=== PATIENT | female | born 1985 | race Caucasian/White ===

== ENCOUNTER 2020-05-16 17:12 | Emergency (ER) | payer MEDICAID ==
[~2020-05-16] VITALS: Ht 154.9 cm; Wt 91.0 kg
[2020-05-16] MEDS ORDERED: PROPOFOL 10 MG/ML, 20ML ONE (17:22)
[2020-05-16] MEDS ORDERED: HYDROmorphone 1 MG/ML, 1ML INJ ONE (17:22)
[2020-05-16] MEDS ORDERED: MIDAZOLAM 1 MG/ML, 2ML ONE (17:28)
[2020-05-16] MEDS ORDERED: ONDANSETRON 2MG/ML, 2ML IVPush ONE (17:30)
[2020-05-16] MEDS ORDERED: SODIUM CHLORIDE FLUSH 10ML SYR IVF ONE (17:30)
[2020-05-16] MEDS ORDERED: MIDAZOLAM 1 MG/ML, 2ML IVPush ONE (17:30)
[2020-05-16] MEDS ORDERED: HYDROmorphone 1 MG/ML, 1ML INJ IVPush PRN (17:30)
[2020-05-16] MEDS ORDERED: PLEASE ENTER HEIGHT AND WEIGHT MC SCH (17:30)
[2020-05-16] MEDS ORDERED: PROPOFOL 10 MG/ML, 20ML IVPush ONE (17:30)
--- NOTE | 2020-05-16 17:38 | NUR ---
UNABLE TO OBTAIN BP DUE TO PTS ANXIETY, RESTLESSNESS. VERIFIED W/ OK TO GIVE VERSED AND DILAUDID DUE TO PTS PAIN STATUS.
--- NOTE | 2020-05-16 18:03 | NUR ---
LATE ENTRY: 1755: PROCEDURE BEGIN. 80 MG PROPOFOL VSS 1800: 40 MG PROPOFOL, VSS 1805: VSS 1808: PT MORE ALERT
--- NOTE | 2020-05-16 18:21 | NUR ---
PT DROWSY BUT ALERT, STATES SHES STILL IN PAIN AND HAS ANXIETY. VSS, NADN.
--- NOTE | 2020-05-16 18:26 | NUR ---
PT STILL HAS C/O PAIN W/ BREATHING. VSS, NADN. WILL UPDATE ERP.
[2020-05-16] MEDS ORDERED: HYDROcodone/APAP 5/325 TABLET ONE (18:32)
[2020-05-16] MEDS ORDERED: ONDANSETRON 2MG/ML, 2ML ONE (18:33)
--- NOTE | 2020-05-16 18:39 | NUR ---
PT STATES SHE IS HAVING BAD ANXIETY, RR26, OTHER VS WDL. NOTIFIED NO NEW ORDERS RECEIVED.
--- NOTE | 2020-05-16 18:51 | NUR ---
LATE ENTRY: THIS IS A 35 YO F BIB EMS FROM HOME FOR RT SHOULDER INJ. RECEIVED 27MG KETAMINE AND 4MG ZOFRAN BROOM MAN. PT IN SEVERE EMOTIONAL DISTRESS UPON ARRIVAL R/T PAIN, UNCONSOLABLE. PT MEDICATED PER EMAR, NO RELIEF W/ 1MG DILAUDID RELIEF AFTER 2MG VERSED. PROCEDURALLY SEDATED W/ 120MG PROPOFOL AND REDUCED SUCCESSFULLY. POST PROCEDURE PT HAS C/O ANXIETY, AND PAIN W/ INSPIRATION. ERP NOTIFIED PT MEDICATED W/ 5 NORCO. AMBREEN LAGUNAS.
--- NOTE | 2020-05-16 18:56 | NUR ---
REPORT GIVEN TO ELISSA VIVAS. PT AWAKE AND ALERT, SILL HAS C/O PAIN AND ANXIETY. AMBREEN LAGUNAS.
[2020-05-16] MEDS ORDERED: LORazepam 1MG TABLET PO ONE (19:00)
[2020-05-16] MEDS ORDERED: HYDROcodone/APAP 5/325 TABLET PO ONE (19:00)
[2020-05-16] MEDS ORDERED: LORazepam 1MG TABLET ONE (19:09)
[2020-05-16 19:40] VITALS: BP 120/76
== END 2020-05-16 19:59 | disposition home or self-care (01) ==
LOC: ED 18:46
DX: S43.004A Unspecified dislocation of right shoulder joint, initial encounter (principal); F17.210 Nicotine dependence, cigarettes, uncomplicated; X58.XXXA Exposure to other specified factors, initial encounter; Y93.89 Activity, other specified; Y92.098 Other place in other non-institutional residence as the place of occurrence of the external cause; Y99.8 Other external cause status
CPT/HCPCS: 23650; 73020; 73030; 96374; 96375; 99285; 99406; J1170; J2250; J2405

== ENCOUNTER 2020-07-22 12:04 | Emergency (ER) | payer MEDICAID ==
[~2020-07-22] VITALS: Ht 152.4 cm; Wt 89.5 kg
[2020-07-22 12:21] VITALS: BP 105/69
[2020-07-22] MEDS ORDERED: DIPH,PERTUSS(ACELL),TET VAC/PF 0.5 ML IM-VACC ONE (12:30)
--- NOTE | 2020-07-22 13:17 | NUR ---
SUPERVISOR AIRPLANE FLIGHT ATTENDANT: PT AMBULATORY TO ROOM FROM LOBBY
--- NOTE | 2020-07-22 13:23 | NUR ---
pt is a 35f complaining of "boils on my head." She has been using hot compresses but they are not helping. She says there are 4 of them and they are caused by the bone spur in her foot which she believes is causing he infection. monitors placed, call light within reach. no further needs at this time.
== END 2020-07-22 14:42 | disposition home or self-care (01) ==
LOC: ED 14:15
DX: L03.811 Cellulitis of head [any part, except face] (principal); L03.313 Cellulitis of chest wall; L03.211 Cellulitis of face; L03.312 Cellulitis of back [any part except buttock and flank]; Z22.322 Carrier or suspected carrier of Methicillin resistant Staphylococcus aureus
CPT/HCPCS: 99283

== ENCOUNTER 2020-08-19 12:05 | Emergency (ER) | payer MEDICAID ==
[~2020-08-19] VITALS: Ht 162.6 cm; Wt 86.8 kg
--- NOTE | 2020-08-19 12:45 | NUR ---
PSYCH CONSULT PER ORTEGA WRIGHT COMPLETED.
--- NOTE | 2020-08-19 12:48 | NUR ---
PT HAVING LOUD CONVERSATION ON HER CELL PHONE.
--- NOTE | 2020-08-19 13:10 | NUR ---
DR CHRISTIANSON AT BS
--- NOTE | 2020-08-19 13:18 | NUR ---
PT SPEAKING RAPIDLY IN COMPLETE SENTENCES. C/O PAIN TO HEAD, FACE, BACK, STOMACH, FEET. NO MEDS TAKEN TODAY. DENIES UTI SX.
--- NOTE | 2020-08-19 13:21 | NUR ---
STATES "I HAVE FLUID COMING OUT OF MY HEAD" WHEN ASKED WHERE, PT REPLIED "EVERYWHERE". NO HEAD DISCHARGE NOTED. C/O FLAMING SENSATION TO BACK.
[2020-08-19] MEDS ORDERED: LORazepam 1MG TABLET ONE (13:26)
[2020-08-19] MEDS ORDERED: LORazepam 1MG TABLET PO ONE (13:30)
[2020-08-19 13:35] VITALS: BP 127/67
--- NOTE | 2020-08-19 13:38 | NUR ---
ATIVAN GIVEN PER EMAR. SIDE RAIL UP X1, CALL LIGHT W/IN REACH. LAB AT
[2020-08-19 13:46] LABS: BASOPHILS % (AUTO) 1 % (0-1); EOSINOPHILS % (AUTO) 2 % (1-7); LYMPHOCYTES % (AUTO) 45 % (22-44); MEAN CORPUSCULAR HEMOGLOBIN 30.5 pg (27.0-34.8); MEAN CORPUSCULAR HGB CONC 34.2 g/dL (32.4-35.8); MEAN PLATELET VOLUME 7.7 fL (7.4-10.4); MONOCYTES % (AUTO) 5 % (2-9); NEUTROPHILS % (AUTO) 48 % (42-75); PLATELET COUNT 278 x10^3/uL (130-400); RED BLOOD COUNT 4.04 x10^6/uL (3.82-5.3)
[2020-08-19 13:50] LABS: MD NO
[2020-08-19 13:58] LABS: ALBUMIN 3.7 g/dL (3.4-5.0); ANION GAP 5 mmol/L (5-15); CALCIUM 8.5 mg/dL (8.5-10.1); CHLORIDE 111 mmol/L (98-107)
[2020-08-19 14:04] LABS: ALANINE AMINOTRANSFERASE 28 U/L (12-78); ALKALINE PHOSPHATASE 93 U/L (45-117); BILIRUBIN,TOTAL 0.3 mg/dL (0.2-1.0); CREATININE 0.83 mg/dL (0.55-1.02); TOTAL PROTEIN 7.1 g/dL (6.4-8.2)
--- NOTE | 2020-08-19 14:21 | NUR ---
PT SITTING QUIETLY ON BED USING CELL PHONE. C/O CONTINUING PAIN, CONTINUING FLUID OOZING FROM HEAD. SPEECH RAPID. REMINDED PT OF NEED FOR URINE SPECIMEN. PT STATES NO URGE TO VOID, "I ONLY PEE ONCE A DAY AND I ALREADY WENT"
--- NOTE | 2020-08-19 14:24 | NUR ---
DISCUSSED VOIDED SPECIMEN VS QUICK CATH SPECIMEN. PT REFUSING QUICK CATH. WATER IN CUP AT BS. WILL CONSULT ERP
--- NOTE | 2020-08-19 14:48 | NUR ---
DR CHRISTIANSON AT TO DISCUSS POC
== END 2020-08-19 15:29 | disposition home or self-care (01) ==
LOC: ED 14:05
DX: M79.10 Myalgia, unspecified site (principal); R21 Rash and other nonspecific skin eruption; Z88.0 Allergy status to penicillin
CPT/HCPCS: 36415; 80053; 84703; 85025; 99283

== ENCOUNTER 2020-08-28 01:29 | Emergency (ER) | payer MEDICAID ==
[~2020-08-28] VITALS: Ht 154.9 cm; Wt 90.0 kg
--- NOTE | 2020-08-28 01:43 | NUR ---
patient resting in bed in NAD. call beaulieu in reach. bed rails up for safety. pillow support provided for right arm. VS remain stable. + CSM to RUE Addendum: 08/28/20 at 0151 by ADOUGHTY patient states "i wear this headband because my head is leaking". patient reports she is currently on doxycycline but she is not sure for what. she states to Dr. Stewart "my skin leaks and its green and squishy. the doctor cant figure out what is causing it". patient points to her wrist and says "can you see it?". i do not note any discoloration to patient's skin. full body scattered scabs noted.
[2020-08-28] MEDS ORDERED: PROPOFOL 10 MG/ML, 20ML ONE (02:14)
[2020-08-28] MEDS ORDERED: FENTANYL PF 100 MCG/2ML ONE (02:14)
[2020-08-28] MEDS ORDERED: FENTANYL PF 100 MCG/2ML IVPush ONE (02:30)
[2020-08-28] MEDS ORDERED: PROPOFOL 10 MG/ML, 20ML IVPush ONE (02:30)
--- NOTE | 2020-08-28 02:40 | NUR ---
PROCEDURAL SEDATION BEGUN WITH MD AT BEDSIDE AND RN. PT ON CR MONITOR AND CO2 MONITOR, AND SAFETY EQUIPMENT AT BEDSIDE. SEDATION CONSENT FORMS SIGNED, AND PRE PROCEDURE V/S TAKEN. PT MEDICATED, SEE SEDATION SHEETS. V/S REMAIN STABLE, AND PT TOLERATED WELL, WHILE MD REDUCED RIGHT SHOULDER. SEE V/S SHEET FOR V/S.
--- NOTE | 2020-08-28 03:15 | NUR ---
POST REDUCTION XRAY DONE. PT A&OX4 AT THIS TIME. MILDLY GROGGY, BUT ANSWERS QUESTIONS AND MOVES IN BED APPROPRIATELY. POSITIVE CMS TO RIGHT HAND. POSITIVE PULSE. AND PAINT CREW SUPERVISOR LESS THAN 3 SECONDS.
--- NOTE | 2020-08-28 03:19 | NUR ---
PT A&OX4, NO ACUTE DISTRESS. REPORT TO VIKTORIA VIVAS.
--- NOTE | 2020-08-28 03:33 | NUR ---
patient resting in bed. requests HOB incline. VS remain stable. trialing on RA at this time. will continue to monitor.
--- NOTE | 2020-08-28 03:52 | NUR ---
discharge instructions with patient. no further questions. patient has all personal belongings with patient on departure. steady gait to dc desk. iv removed per dc protocol. a&ox4. Vs remain stable on RA
[2020-08-28 03:54] VITALS: BP 110/73
== END 2020-08-28 03:57 | disposition home or self-care (01) ==
LOC: ED 01:45
DX: S43.004A Unspecified dislocation of right shoulder joint, initial encounter (principal); F17.210 Nicotine dependence, cigarettes, uncomplicated; X58.XXXA Exposure to other specified factors, initial encounter; Y93.89 Activity, other specified; Y92.009 Unspecified place in unspecified non-institutional (private) residence as the place of occurrence of the external cause; Y99.8 Other external cause status
CPT/HCPCS: 23650; 99152; 99406